=== PATIENT | male | born 1960 | race Caucasian/White ===

== ENCOUNTER 2017-12-29 14:33 | Emergency (ER) | payer OTHER ==
--- NOTE | 2017-12-29 15:44 | RADIOLOGY REPORT (SQ) ---
EXAM DESCRIPTION: KNEE LEFT 4 VIEW COMPLETED DATE/TIME: 12/29/2017 3:37 pm REASON FOR STUDY: left knee pain COMPARISON: None. NUMBER OF VIEWS: Four views. TECHNIQUE: AP, lateral, and both oblique radiographic images acquired of the left knee. LIMITATIONS: None. FINDINGS: MINERALIZATION: Normal. BONES: There is a total knee arthroplasty in good position. JOINT: No effusion. SOFT TISSUES: No soft tissue swelling. No radio-opaque foreign body. OTHER: No other significant finding. IMPRESSION: NEGATIVE STUDY OF THE LEFT KNEE. NO RADIOGRAPHIC EVIDENCE OF ACUTE INJURY. TECHNICAL DOCUMENTATION: JOB ID: [id number] [employer]- All Rights Reserved Reading location - IP/workstation name: [email or web address]
--- NOTE | 2017-12-29 15:58 | ER Document Report ---
ED Extremity Problem, Lower - General Chief Complaint: Knee Pain Stated Complaint: SWOLLEN KNEE Time Seen by Provider: 12/29/17 15:31 Mode of Arrival: Wheelchair Information source: Patient Notes: 57-year-old male presents to ED for complaint of left knee pain. He states that the left knee has been swollen for about a week with pain. He states he might have slept on it wrong. States she has been taken Tylenol at home for the pain. States he had a knee replacement in 2002. He states normally he can put weight on it but he has not been able to put weight on it for the last 3 days. TRAVEL OUTSIDE OF THE [place] IN LAST 30 DAYS: No - HPI Patient complains to provider of: Pain, Swelling. No: Injury Location: Knee Occurred: Other - 3 days Onset/Duration: Gradual, Persistent Quality of pain: Sharp, Throbbing Severity: Severe Pain Level: 5 Recent injury: No Associated symptoms: Painful ambulation Exacerbated by: Hanging down, Movement Relieved by: Nothing - Related Data Allergies/Adverse Reactions: No Known Allergies Allergy (Verified 10/08/15 16:48) Past Medical History - General Information source: Patient - Social History Smoking Status: Former Smoker Cigarette use (# per day): No Chew tobacco use (# tins/day): No Smoking Education Provided: No Frequency of alcohol use: Heavy Drug Abuse: None Occupation: disable Lives with: Spouse/Significant other Family History: Arthritis, CVA, Hypertension Patient has suicidal ideation: No Patient has homicidal ideation: No - Past Medical History Cardiac Medical History: Reports: Hx Atrial Fibrillation, Hx Hypertension Pulmonary Medical History: Reports: None EENT Medical History: Reports: None Neurological Medical History: Reports: None Endocrine Medical History: Reports: None Renal/ Medical History: Reports: None Malignancy Medical History: Reports None GI Medical History: Reports: None Musculoskeltal Medical History: Reports Hx Arthritis - gout, Reports Hx Gout, Reports Hx Musculoskeletal Deformity, Reports Hx Musculoskeletal Trauma Skin Medical History: Reports None Psychiatric Medical History: Reports: Hx Anxiety, Hx Bipolar Disorder, Other - Insomnia Traumatic Medical History: Reports: None Infectious Medical History: Reports: None Past Surgical History: Reports: Hx Orthopedic Surgery - left knee replacement right rotator cuff, Other - Skin cancer removed, lymph node removed - Immunizations Hx Diphtheria, Pertussis, Tetanus Vaccination: Yes Review of Systems - Review of Systems Constitutional: No symptoms reported EENT: No symptoms reported Cardiovascular: No symptoms reported Respiratory: No symptoms reported Gastrointestinal: No symptoms reported Genitourinary: No symptoms reported Male Genitourinary: No symptoms reported Musculoskeletal: Other - Pain to the back of the knee. He states he might have slept on it wrong. He does have a knee replacement on this knee. He states that his knee is swollen but actually the other knee is larger than this knee. He states she has been taken Tylenol at home. Skin: No symptoms reported Hematologic/Lymphatic: No symptoms reported Neurological/Psychological: No symptoms reported -: Yes All other systems reviewed and negative Physical Exam - Vital signs Vitals: Temp Pulse BP Pulse Ox 97.7 F 77 119/91 H 93 12/29/17 15:12 12/29/17 15:12 12/29/17 15:12 12/29/17 15:12 Interpretation: Normal - General General appearance: Appears well, Alert - HEENT Head: Normocephalic, Atraumatic Eyes: Normal Pupils: PERRL - Respiratory Respiratory status: No respiratory distress Chest status: Nontender Breath sounds: Normal Chest palpation: Normal - Cardiovascular Rhythm: Regular Heart sounds: Normal auscultation Murmur: No - Abdominal Inspection: Normal Distension: No distension Bowel sounds: Normal Tenderness: Nontender Organomegaly: No organomegaly - Back Back: Normal, Nontender - Extremities General upper extremity: Normal inspection, Nontender, Normal color, Normal ROM , Normal temperature General lower extremity: Normal temperature. No: Hollie's sign Knee: Tender, Pain with ROM, Patellar tendon intact, Popliteal fossa tender, Tender joint line, Other - Lower extremity discoloration chronic. No: Abrasion , Deformity, Dislocation, Drawer's test instability, Ecchymosis, Instability, Joint effusion, Laceration, Laxity with valgus stress, Laxity with varus stress - Neurological Neuro grossly intact: Yes Cognition: Normal Orientation: AAOx4 [place] Coma Scale Eye Opening: Spontaneous [place] Coma Scale Verbal: Oriented [place] Coma Scale Motor: Obeys Commands [place] Coma Scale Total: 15 Speech: Normal Motor strength normal: LUE, RUE, LLE, RLE Sensory: Normal - Psychological Associated symptoms: Normal affect, Normal mood - Skin Skin Temperature: Warm Skin Moisture: Dry Skin Color: Normal Course - Re-evaluation Re-evalutation: 12/29/17 21:26 Left knee x-ray and venous Doppler were both negative. Patient stated he could not get up out of the chair to get onto the bed when first examined. But after he was told that his x-rays and ultrasound were negative he was able to get himself up and into the chair. Patient was instructed to follow-up with the surgeon who did his knee replacement and his [facility] for his continued pain. - Vital Signs Vital signs: Temp Pulse Resp BP Pulse Ox 97.6 F 75 16 118/75 98 12/29/17 17:00 12/29/17 17:00 12/29/17 17:00 12/29/17 17:00 12/29/17 17:00 - Diagnostic Test Radiology reviewed: Image reviewed, Reports reviewed Discharge - Discharge Clinical Impression: Left knee pain Qualifiers: Chronicity: unspecified Qualified Code(s): M25.562 - Pain in left knee Condition: Stable Disposition: HOME, SELF-CARE Instructions: Knee Exercise Program (OM) Additional Instructions: He was seen today for pain to the left knee for the last several days. There is no acute changes to your x-ray Doppler is negative for any blood clots or Gomez's cyst. There may be a small effusion according to the Doppler on the lateral aspect of the knee. ICE & ELEVATION: Apply ice packs frequently against the painful area. Many different schedules are recommended, such as "20 minutes on, 20 minutes off" or "one hour ice, two hours rest." If you need to work, you may need to go longer between ice treatments. You should plan to have the area ice packed AT LEAST one- fourth of the time. The ice should be applied over the wrap, tape, or splint, or over a layer of cloth -- not directly against the skin. Some ice bags have a built-in cloth and can be put directly on the skin. Your injured part should be elevated as much as possible over the next 48 hours. Try to keep the injury above the level of the heart. Avoid use of the injured area. Elevation and rest will decrease the swelling. ORAL NARCOTIC MEDICATION: You have been given a prescription for pain control. This medication is a narcotic. It's best taken with food, as nausea can result if taken on an empty stomach. Don't operate machinery or drive within six hours of taking this medication. Do not combine this medicine with alcohol, or with any medication which can cause sedation (such as cold tablets or sleeping pills) unless you get permission from the physician. Narcotics tend to cause constipation. If possible, drink plenty of fluids and eat a diet high in fiber and fruits. Please be aware that prescription narcotics also have the potential for abuse. People become addicted to these medications because of the general sense of wellbeing that they induce. This feeling along with a significant reduction in tension, anxiety, and aggression provides a stimulating seductive quality to these drugs. Once your pain is under control, we encourage you to discard your unused narcotics. FOLLOW-UP CARE: Please call your orthopedic rn today and schedule a follow-up appointment for this knee pain. If you cannot call him today then calling tomorrow. If you have been referred to a physician for follow-up care, call the physician s office for an appointment as you were instructed or within the next two days. If you experience worsening or a significant change in your symptoms, notify the physician immediately or return to the Emergency Department at any time for re-evaluation. Prescriptions: Hydrocodone/Acetaminophen [[place] 5-325 mg Tablet] 1 tab PO Q6HP PRN #5 tablet PRN Reason: Forms: Elevated Blood Pressure
--- NOTE | 2017-12-29 16:58 | RADIOLOGY REPORT (SQ) ---
EXAM DESCRIPTION: VENOUS UNILATERAL LOWER COMPLETED DATE/TIME: 12/29/2017 4:50 pm REASON FOR STUDY: left leg pain sedentary COMPARISON: Left knee plain films 12/29/2017 TECHNIQUE: Dynamic and static centeno scale and color images acquired of the left leg venous system. Se lected spectral images acquired with additional compression and augmentation maneuvers. The contralat eral common femoral vein and saphenofemoral junction were also imaged. Images stored on PACS. LIMITATIONS: None. FINDINGS: LEFT COMMON FEMORAL: Normal phasicity, compression and augmentation. No visualized echogenic material on g ray scale. No defects on color images. FEMORAL: Normal compression and augmentation. No visualized echogenic material on centeno scale. No defe cts on color images. POPLITEAL: Normal compression, augmentation. No visualized echogenic material on centeno scale. No defec ts on color images. CALF VESSELS: Normal compression, augmentation. No visualized echogenic material on centeno scale. No de fects on color images. GSV and SSV: Normal compression, augmentation. No visualized echogenic material on centeno scale. No def ects on color images. ANY DEEP VENOUS INSUFFICIENCY: Not evaluated. ANY EVIDENCE OF POPLITEAL CYST: Gomez's cyst versus joint effusion in the popliteal fossa OTHER: No other significant finding. RIGHT COMMON FEMORAL VEIN AND SAPHENOFEMORAL JUNCTION: Normal phasicity, compression and augmentation. No visualized echogenic material on centeno scale. No de fects on color images. IMPRESSION: NO EVIDENCE OF DVT OR SVT IN THE LEFT LEG. TECHNICAL DOCUMENTATION: JOB ID: [id number] [employer]- All Rights Reserved Reading location - IP/workstation name: [email or web address]
[2017-12-29 17:17] VITALS: BP 118/75
== END 2017-12-29 17:00 | disposition home or self-care (01) ==
LOC: ER 14:33
DX: M25.562 Pain in left knee (principal); Z96.652 Presence of left artificial knee joint; I48.91 Unspecified atrial fibrillation; I10 Essential (primary) hypertension; Z85.828 Personal history of other malignant neoplasm of skin
CPT/HCPCS: 93971; 99284

== ENCOUNTER 2020-02-10 06:52 | Inpatient (IN) | payer OTHER ==
[2020-02-10] MEDS ORDERED: ONDANSETRON HCL INJ/PF 4 MG/2 ML SDV IV ONE (07:03)
[2020-02-10] MEDS ORDERED: NORMAL SALINE 1000 ML 1,000 ML IV ONE (07:03)
[2020-02-10] MEDS ORDERED: MAG HYDROX/AL HYDROX/SIMETH SUSP 30 ML UDCUP PO ONE (08:34)
[2020-02-10] MEDS ORDERED: LIDOCAINE 2% VISCOUS SOLN 15 ML UDCUP PO ONE (08:34)
[2020-02-10 08:58] LABS: ABSOLUTE EOSINOPHILS # (AUTO) 0.1 10^3/uL (0.0-0.6); ABSOLUTE LYMPHOCYTES (AUTO) 0.5 10^3/uL (0.5-4.7); ABSOLUTE MONOCYTES (AUTO) 0.9 10^3/uL (0.1-1.4); ABSOLUTE NEUT (AUTO) 7.7 10^3/uL (1.7-8.2); BASOPHILS % (AUTO) 0.2 % (0-2); EOSINOPHILS % (AUTO) 0.7 % (0-6); HEMATOCRIT 42.5 % (37.9-51.0); HEMOGLOBIN 14.9 g/dL (13.5-17.0); LYMPHOCYTES % (AUTO) 5.3 % (13-45); MEAN CORPUSCULAR HEMOGLOBIN 35.1 pg (27.0-33.4); MEAN CORPUSCULAR HGB CONC 35.1 g/dL (32.0-36.0); MEAN CORPUSCULAR VOLUME 100 fl (80-97); MONOCYTES % (AUTO) 9.9 % (3-13); PLATELET COUNT 183 10^3/uL (150-450); RED BLOOD COUNT 4.24 10^6/uL (4.35-5.55); SEGMENTED NEUTROPHILS % (AUTO) 83.9 % (42-78); TOTAL CELLS COUNTED % (AUTO) 100 %; WHITE BLOOD COUNT 9.2 10^3/uL (4.0-10.5)
--- NOTE | 2020-02-10 09:06 | ER Document Report ---
Entered by SUNI VALIENTE SCRIBE 02/10/20 0817 Acting as scribe for:SHU PARKINSON MD ED GI/ - General Chief Complaint: Nausea/Vomiting Stated Complaint: VOMITING Time Seen by Provider: 02/10/20 08:04 Primary Care Provider: CHOCO,LINDEN [Primary Care Provider] - Follow up as needed Mode of Arrival: Wheelchair Information source: Patient Notes: This alcoholic 59 year old male patient presents to the emergency department today with complaints of abdominal pain for the last x4 days. Patient describes the location as "all of it", stating it feels like "like needles or ice picks" across his entire abdomen. Patient states he thinks he has food poisoning. He denies any diarrhea. TRAVEL OUTSIDE OF THE [place] IN LAST 30 DAYS: No - Related Data Allergies/Adverse Reactions: No Known Allergies Allergy (Verified 01/30/19 08:36) Home Medications: P TUNABLE TO VERIFY Past Medical History - General Information source: Patient - Social History Smoking Status: Never Smoker Cigarette use (# per day): No Frequency of alcohol use: Heavy Drug Abuse: None Lives with: Family Family History: Reviewed & Not Pertinent, Arthritis, CVA, Hypertension Patient has homicidal ideation: No - Past Medical History Cardiac Medical History: Reports: Hx Atrial Fibrillation, Hx Hypertension Musculoskeletal Medical History: Reports Hx Arthritis - gout, Reports Hx Gout, Reports Hx Musculoskeletal Deformity, Reports Hx Musculoskeletal Trauma Psychiatric Medical History: Reports: Hx Anxiety, Hx Bipolar Disorder Past Surgical History: Reports: Hx Orthopedic Surgery - left knee replacement right rotator cuff, Other - Skin cancer removed, lymph node removed - Immunizations Hx Diphtheria, Pertussis, Tetanus Vaccination: Yes - NOT UP TO DATE Review of Systems - Review of Systems Constitutional: No symptoms reported EENT: No symptoms reported Cardiovascular: No symptoms reported Respiratory: No symptoms reported Gastrointestinal: See HPI, Abdominal pain. denies: Diarrhea Genitourinary: No symptoms reported Male Genitourinary: No symptoms reported Musculoskeletal: No symptoms reported Skin: No symptoms reported Hematologic/Lymphatic: No symptoms reported Neurological/Psychological: No symptoms reported -: Yes All other systems reviewed and negative Physical Exam - Vital signs Vitals: Temp 97.5 F 02/10/20 07:00 - General General appearance: Alert In distress: None - HEENT Head: Normocephalic, Atraumatic Eyes: Normal Conjunctiva: Normal - Respiratory Respiratory status: No respiratory distress Chest status: Nontender Breath sounds: Normal - Cardiovascular Rhythm: Irregularly irregular, Tachycardia Heart sounds: Normal auscultation Murmur: No - Abdominal Inspection: Obese - morbidly Distension: No distension Bowel sounds: Normal Tenderness: Other - very mild diffuse tenderness with palpation. Seems to be most tender in the epigastric region. - Extremities General upper extremity: Normal inspection, Nontender, Normal ROM General lower extremity: Nontender, Edema, Normal ROM - Neurological Neuro grossly intact: Yes Cognition: Normal Orientation: AAOx4 - Psychological Associated symptoms: Normal affect, Normal mood - Skin Skin Temperature: Warm Skin Moisture: Dry Skin Color: Normal Course - Vital Signs Vital signs: Temp Pulse Resp BP Pulse Ox 97.5 F 18 198/110 H 94 02/10/20 07:00 02/10/20 09:04 02/10/20 09:12 02/10/20 09:04 - Laboratory Result Diagrams: 02/10/20 08:36 02/10/20 08:36 Laboratory results interpreted by me: 02/10/20 02/10/20 02/10/20 05:22 08:36 08:36 RBC 4.24 L MCV 100 H MCH 35.1 H Lymph % (Auto) 5.3 L Seg Neutrophils % 83.9 H Sodium 131.9 L Chloride 88 L Carbon Dioxide 32 H Glucose 150 H POC Glucose Magnesium Total Bilirubin 1.5 H Direct Bilirubin 0.6 H Alkaline Phosphatase 214 H Creatine Kinase C-Reactive Protein 224.8 H Lipase 1579.6 H Urine Protein Urine Ketones Urine Urobilinogen Ur Leukocyte Esterase Urine Ascorbic Acid 02/10/20 02/10/20 02/10/20 08:36 08:55 10:27 RBC MCV MCH Lymph % (Auto) Seg Neutrophils % Sodium Chloride Carbon Dioxide Glucose POC Glucose 143 H Magnesium 1.1 L* Total Bilirubin Direct Bilirubin Alkaline Phosphatase Creatine Kinase 37 L C-Reactive Protein Lipase Urine Protein 100 H Urine Ketones 20 H Urine Urobilinogen 2.0 H Ur Leukocyte Esterase TRACE H Urine Ascorbic Acid 40 H - Diagnostic Test Radiology reviewed: Image reviewed, Reports reviewed - Gallbladder ultrasound shows fatty enlarged liver, otherwise no acute abnormality. - EKG Interpretation by Me EKG shows normal: [place], Intervals, QRS Complexes. abnormal: Sinus rhythm, ST-T Waves - Nonspecific repolarization abnormality in the lateral leads Rate: Tachycardia - 146 Rhythm: A.Fib When compared to previous EKG there are: No significant change - Consults SANTOS Claire Time consulted: 10:43 Consulted provider: will come to ER Critical Care Note - Critical Care Note Total time excluding time spent on procedures (mins): 40 Discharge - Discharge Clinical Impression: Chronic atrial fibrillation with RVR, Hypomagnesemia Nausea and vomiting Qualifiers: Vomiting type: unspecified Vomiting Intractability: non-intractable Qualified Code(s): R11.2 - Nausea with vomiting, unspecified Abdominal pain Qualifiers: Abdominal location: epigastric Qualified Code(s): R10.13 - Epigastric pain Pancreatitis, acute Qualifiers: Pancreatitis type: alcohol induced Acute pancreatitis complication: unspecified Qualified Code(s): K85.20 - Alcohol induced acute pancreatitis without necrosis or infection High blood pressure Qualifiers: Hypertension type: essential hypertension Qualified Code(s): I10 - Essential (primary) hypertension Condition: Stable Disposition: ADMITTED INPATIENT Admitting Provider: Fred (Hospitalist) Unit Admitted: [facility]: [facility] [[facility] - Follow up as needed I personally performed the services described in the documentation, reviewed and edited the documentation which was dictated to the scribe in my presence, and it accurately records my words and actions.
[2020-02-10] MEDS ORDERED: DILTIAZEM HCL INJ 25 MG/5 ML VIAL IV ONE (09:09)
[2020-02-10] MEDS ORDERED: FENTANYL CITRATE INJ/PF 100 MCG/2 ML AMPUL IV ONE ×2 (09:11→10:56)
[2020-02-10 09:12] LABS: ALBUMIN 3.9 g/dL (3.5-5.0); ALKALINE PHOSPHATASE 214 U/L (38-126); ANION GAP 12 (5-19); ASPARTATE AMINO TRANSFERASE 52 U/L (17-59); BILIRUBIN,DIRECT 0.6 mg/dL (0.0-0.4); BILIRUBIN,TOTAL 1.5 mg/dL (0.2-1.3); BLOOD UREA NITROGEN 13 mg/dL (7-20); CALCIUM 9.9 mg/dL (8.4-10.2); CARBON DIOXIDE 32 mmol/L (22-30); CHLORIDE 88 mmol/L (98-107); GLUCOSE 150 mg/dL (75-110); POTASSIUM 4.3 mmol/L (3.6-5.0); TOTAL PROTEIN 7.8 g/dL (6.3-8.2)
[2020-02-10 09:19] LABS: APPEARANCE,URINE CLEAR; BILIRUBIN,URINE NEGATIVE (NEGATIVE); COLOR,URINE YELLOW; GLUCOSE, URINE NEGATIVE (NEGATIVE); KETONES,URINE 20 mg/dL (NEGATIVE); LEUKOCYTE ESTERASE,URINE TRACE (NEGATIVE); NITRITE,URINE NEGATIVE (NEGATIVE); PROTEIN,URINE 100 mg/dL (NEGATIVE)
[2020-02-10] MEDS: DILTIAZEM HCL/D5W 125 MG/125 ML RTUINJ IV PRN ×2 (09:42→18:28)
[2020-02-10] MEDS: MAGNESIUM SULFATE/D5W 1 GM/100 ML RTUPB IV SCH ×2 (10:09→11:21)
--- NOTE | 2020-02-10 10:16 | EKG REPORT ---
SEVERITY:- ABNORMAL ECG - ATRIAL FIBRILLATION, V-RATE 103-190 NONSPECIFIC REPOL ABNORMALITY, LATERAL LEADS : Confirmed by: Bianca Lamb MD 10-Feb-2020 10:15:52
--- NOTE | 2020-02-10 10:21 | RADIOLOGY REPORT (SQ) ---
EXAM DESCRIPTION: U/S ABDOMEN LIMITED W/O DOP IMAGES COMPLETED DATE/TIME: 02/10/2020 10:00 am REASON FOR STUDY: Pancreatitis COMPARISON: None. TECHNIQUE: Dynamic and static grayscale images acquired of the abdomen and recorded on PACS. Additio nal selected color Doppler and spectral images recorded. LIMITATIONS: Acoustical interference from habitus and overlying bowel gas. FINDINGS: PANCREAS: Only partially visualized. Body and tail not seen. Head looks normal. LIVER: Liver looks diffusely echogenic and mildly enlarged at 20 cm. Likely fatty parenchyma. No gr oss mass. LIVER VASCULATURE: Normal directional flow of the main portal vein and hepatic veins. GALLBLADDER: No stones. Normal wall thickness. No pericholecystic fluid. ULTRASOUND-DETECTED GALEAS'S SIGN: Negative. INTRAHEPATIC DUCTS AND COMMON DUCT: CBD and intrahepatic ducts normal caliber. No filling defects. INFERIOR VENA CAVA: Normal flow. AORTA: No aneurysm. RIGHT KIDNEY: Normal size. Normal echogenicity. No solid or suspicious masses. No hydronephrosis. No calcifications. PERITONEAL AND RIGHT PLEURAL SPACE: No ascites or effusions. OTHER: No other significant findings. IMPRESSION: Limited study. Fatty enlarged liver. TECHNICAL DOCUMENTATION: JOB ID: [id number] 2010 [employer]- All Rights Reserved Reading location - IP/workstation name: [email or web address]
--- NOTE | 2020-02-10 10:35 | RADIOLOGY REPORT (SQ) ---
EXAM DESCRIPTION: CHEST SINGLE VIEW IMAGES COMPLETED DATE/TIME: 02/10/2020 10:26 am REASON FOR STUDY: A. fib with RVR, pancreatitis, nausea vomiting COMPARISON: 2018. NUMBER OF VIEWS: One view. TECHNIQUE: Single frontal radiographic view of the chest acquired. LIMITATIONS: None. FINDINGS: LUNGS AND PLEURA: No opacities, masses or pneumothorax. No pleural effusion. MEDIASTINUM AND HILAR STRUCTURES: No masses. Contour normal. HEART AND VASCULAR STRUCTURES: Heart normal in size. Normal vasculature. BONES: No acute findings. HARDWARE: None in the chest. OTHER: No other significant finding. IMPRESSION: NO SIGNIFICANT RADIOGRAPHIC FINDING IN THE CHEST. TECHNICAL DOCUMENTATION: JOB ID: [id number] 2010 [employer]- All Rights Reserved Reading location - IP/workstation name: [email or web address]
[2020-02-10] MEDS ORDERED: DIGOXIN INJ 0.5 MG/2 ML AMPULE IV ONE (10:56)
[2020-02-10] MEDS ORDERED: DEXTROSE 50%-WATER 25 GM/50 ML DISP.SYRIN IV PRN ×4 (12:05→15:43)
[2020-02-10] MEDS ORDERED: ACETAMINOPHEN 325 MG TABLET PO PRN (12:05)
[2020-02-10] MEDS ORDERED: DEXTROSE 40% GEL 15 GM TUBE PO PRN ×4 (12:05→15:43)
[2020-02-10] MEDS ORDERED: GLUCAGON,HUMAN RECOMB 1 MG INJ SUBCUT PRN (12:05)
[2020-02-10] MEDS ORDERED: MAG HYDROX/AL HYDROX/SIMETH SUSP 30 ML UDCUP PO PRN (12:05)
[2020-02-10] MEDS ORDERED: ONDANSETRON 4 MG TAB.RAPDIS PO PRN (12:05)
[2020-02-10] MEDS ORDERED: LEVALBUTEROL HCL NEB 1.25 MG/3 ML AMPUL NEB PRN (12:05)
[2020-02-10 12:12] LABS: URINE AMPHETAMINES SCREEN NEGATIVE; URINE BARBITURATES SCREEN NEGATIVE; URINE BENZODIAZEPINES SCREEN NEGATIVE; URINE COCAINE SCREEN NEGATIVE; URINE METHADONE SCREEN NEGATIVE; URINE PHENCYCLIDINE SCREEN NEGATIVE
[2020-02-10 12:25] LABS: URINE MARIJUANA (THC) SCREEN UNCONFIRMED POSITIVE
[2020-02-10 12:38] LABS: INTERNATIONAL RATION (INR) 1.29; PROTHROMBIN TIME 16.2 SEC (11.4-15.4)
[2020-02-10] MEDS: NORMAL SALINE 1000 ML 1,000 ML IV PRN ×2 (13:16→21:19)
[2020-02-10] MEDS: PANTOPRAZOLE SODIUM 40 MG VIAL IV SCH ×2 (13:16→21:19)
[2020-02-10] MEDS: METOPROLOL SUCCINATE 50 MG TAB.SR.24H PO SCH ×2 (13:16→21:18)
[2020-02-10 13:24] LABS: CREATINE KINASE MB 2.23 ng/mL (<4.55); TROPONIN I 0.049 ng/mL
[2020-02-10] MEDS: DIGOXIN 0.25 MG TABLET PO SCH (14:06)
[2020-02-10] MEDS ORDERED: GLUCAGON,HUMAN RECOMB 1 MG INJ IM PRN (15:43)
[2020-02-10] MEDS ORDERED: HYDRALAZINE HCL INJ/PF 20 MG/1 ML SDV IV PRN (16:04)
[2020-02-10] MEDS: METFORMIN HCL 500 MG TABLET PO SCH (16:50)
[2020-02-10] MEDS: MORPHINE SULFATE 10 MG/ML INJ IV PRN ×2 (16:51→21:18)
[2020-02-10] MEDS: LORAZEPAM 1 MG TABLET PO SCH (17:06)
[2020-02-10] MEDS: APIXABAN 5 MG TABLET PO SCH (17:07)
[2020-02-10] MEDS ORDERED: APIXABAN 5 MG TABLET PO SCH (18:00)
[2020-02-10] MEDS: INSULIN LISPRO 100 UNIT/ML 3 ML VIAL SUBCUT SCH ×2 (18:10→23:02)
[2020-02-10] MEDS: ONDANSETRON HCL INJ/PF 4 MG/2 ML SDV IV PRN (18:28)
[2020-02-10] MEDS: QUETIAPINE FUMARATE 100 MG TABLET PO SCH (21:19)
[2020-02-11] MEDS: LORAZEPAM 1 MG TABLET PO SCH ×5 (01:38→17:57)
[2020-02-11] MEDS: MORPHINE SULFATE 10 MG/ML INJ IV PRN ×2 (04:08→21:03)
[2020-02-11] MEDS: DILTIAZEM HCL/D5W 125 MG/125 ML RTUINJ IV PRN ×2 (05:44→05:47)
[2020-02-11] MEDS: NORMAL SALINE 1000 ML 1,000 ML IV PRN ×2 (05:45→09:12)
[2020-02-11 05:59] LABS: ABSOLUTE EOSINOPHILS # (AUTO) 0.1 10^3/uL (0.0-0.6); ABSOLUTE LYMPHOCYTES (AUTO) 0.5 10^3/uL (0.5-4.7); ABSOLUTE MONOCYTES (AUTO) 0.9 10^3/uL (0.1-1.4); ABSOLUTE NEUT (AUTO) 7.3 10^3/uL (1.7-8.2); BASOPHILS % (AUTO) 0.3 % (0-2); EOSINOPHILS % (AUTO) 0.6 % (0-6); HEMATOCRIT 41.3 % (37.9-51.0); HEMOGLOBIN 14.5 g/dL (13.5-17.0); LYMPHOCYTES % (AUTO) 5.8 % (13-45); MEAN CORPUSCULAR HEMOGLOBIN 34.8 pg (27.0-33.4); MEAN CORPUSCULAR HGB CONC 35.2 g/dL (32.0-36.0); MEAN CORPUSCULAR VOLUME 99 fl (80-97); MONOCYTES % (AUTO) 10.2 % (3-13); PLATELET COUNT 162 10^3/uL (150-450); RED BLOOD COUNT 4.18 10^6/uL (4.35-5.55); SEGMENTED NEUTROPHILS % (AUTO) 83.1 % (42-78); TOTAL CELLS COUNTED % (AUTO) 100 %; WHITE BLOOD COUNT 8.7 10^3/uL (4.0-10.5)
[2020-02-11 06:23] LABS: ALBUMIN 3.7 g/dL (3.5-5.0); ALKALINE PHOSPHATASE 161 U/L (38-126); AMYLASE 57 U/L (30-110); ANION GAP 12 (5-19); ASPARTATE AMINO TRANSFERASE 36 U/L (17-59); BILIRUBIN,DIRECT 0.8 mg/dL (0.0-0.4); BILIRUBIN,TOTAL 1.6 mg/dL (0.2-1.3); BLOOD UREA NITROGEN 12 mg/dL (7-20); CALCIUM 8.9 mg/dL (8.4-10.2); CARBON DIOXIDE 25 mmol/L (22-30); CHLORIDE 93 mmol/L (98-107); GLUCOSE 121 mg/dL (75-110); POTASSIUM 4.8 mmol/L (3.6-5.0); TOTAL PROTEIN 7.4 g/dL (6.3-8.2)
--- NOTE | 2020-02-11 07:17 | EKG REPORT ---
SEVERITY:- ABNORMAL ECG - ATRIAL FIBRILLATION, V-RATE 66-106 NONSPECIFIC T ABNORMALITIES, LATERAL LEADS : Confirmed by: Joel Seymour MD 11-Feb-2020 07:17:02
[2020-02-11] MEDS: INSULIN LISPRO 100 UNIT/ML 3 ML VIAL SUBCUT SCH ×4 (08:31→22:30)
--- NOTE | 2020-02-11 08:36 | PDOC H&P ---
History of Present Illness Admission Date/PCP: 02/10/20 10:42 [facility] History of Present Illness: ALAN CANO is a 59 year old male admitted through the emergency room on 02/10/2024 acute pancreatitis secondary to alcohol abuse. Patient tells me he drinks about a pint of vodka on a regular basis, I am unsure if it is every day or every other day. Patient tells me has been drinking alcohol for many many years , he tells me he has been vomiting 3-4 times every day for the last 4 d ays. Patient is also been having some vague abdominal pain for the last for 5 days. Patient states he is never had pancreatitis before. Patient denies fever chills or chest pain. The emergency room and on the floor patient has refused CT scan of his abdomen and pelvis. Informed patient we will admit him to the hospital for IV pain medication IV fluids and n.p.o.. Patient was quite upset that he will not be able to eat any food. Admission lipase 1579 Past Medical History Cardiac Medical History: Reports: Atrial Fibrillation, Hypertension Denies: Coronary Artery Disease, Myocardial Infarction Pulmonary Medical History: Denies: Asthma, Bronchitis, Chronic Obstructive Pulmonary Disease (COPD), Pneumonia Neurological Medical History: Denies: Seizures Musculoskeltal Medical History: Reports: Arthritis - gout, Gout Psychiatric Medical History: Reports: Bipolar Disorder, Depression Hematology: Denies: Anemia Past Surgical History Past Surgical History: Reports: Orthopedic Surgery - left knee replacement right rotator cuff, Other - Skin cancer removed, lymph node removed Social History Lives with: Family Smoking Status: Never Smoker Electronic Cigarette use?: No Frequency of Alcohol Use: Heavy Hx Recreational Drug Use: No Drugs: None Hx Prescription Drug Abuse: No - Advance Directive Resuscitation Status: Full Code Family History Family History: Reviewed & Not Pertinent, Arthritis, CVA, Hypertension Parental Family History Reviewed: No Children Family History Reviewed: No Sibling(s) Family History Reviewed.: No Medication/Allergy Home Medications: Apixaban [Eliquis 5 mg Tablet] 5 mg PO BID 01/30/19 Digoxin [Lanoxin 0.25 mg Tablet] 0.25 mg PO DAILY 01/30/19 Lisinopril [Prinivil] 10 mg PO DAILY 01/30/19 Metoprolol Succinate 200 mg PO QAM 01/30/19 Colchicine [Mitigare] 0.6 mg PO ASDIR PRN MDD 3 CAPS 05/03/20 Hydrocodone/Acetaminophen [[place] 5-325 mg Tablet] 1 tab PO Q6HP PRN MDD FILLED 02/04 FOR 3 DAY SUPPLY 02/10/20 Levothyroxine Sodium [Synthroid 50 Mcg Tablet] 50 mcg PO DAILY 02/10/20 Metformin HCl [Glucophage 500 mg Tablet] 500 mg PO BIDACBS 02/10/20 Sulfamethoxazole/Trimethoprim [Septra-Ds 800-160 mg Tablet] 1 tab PO Q12 MDD FILLED 02/04 FOR 7 DAYS 02/10/20 Allergies/Adverse Reactions: No Known Allergies Allergy (Verified 01/30/19 08:36) Review of Systems Constitutional: ABSENT: chills, fever(s), headache(s), weight gain, weight loss Cardiovascular: ABSENT: chest pain, dyspnea on exertion, edema, orthropnea, palpitations Respiratory: ABSENT: cough, hemoptysis Gastrointestinal: PRESENT: abdominal pain, nausea, vomiting Neurological: ABSENT: abnormal gait, abnormal speech, confusion, dizziness, focal weakness, syncope Psychiatric: ABSENT: anxiety, depression, homidical ideation, suicidal ideation Physical Exam Vital Signs: Temp Pulse Resp BP Pulse Ox 97.4 F 78 18 130/80 H 99 02/11/20 07:53 02/11/20 08:00 02/11/20 07:53 02/11/20 08:00 02/11/20 07:53 Intake & Output 02/10/20 02/11/20 02/12/20 06:59 06:59 06:59 Intake Total 3438 Balance 3438 Weight 165.108 kg General appearance: PRESENT: mild distress Respiratory exam: PRESENT: clear to auscultation yolanda. ABSENT: rales, rhonchi, wheezes Cardiovascular exam: PRESENT: RRR. ABSENT: diastolic murmur, rubs, systolic murmur GI/Abdominal exam: PRESENT: distended, soft, tenderness - Generalized tenderness Neurological exam: PRESENT: alert, awake, oriented to person, oriented to place, oriented to time, oriented to situation, CN II-XII grossly intact. ABSENT: motor sensory deficit Psychiatric exam: PRESENT: appropriate affect, normal mood. ABSENT: homicidal ideation, suicidal ideation Results Laboratory Results: 02/11/20 05:25 02/11/20 05:25 02/10/20 02/10/20 02/10/20 05:22 08:36 08:36 WBC 9.2 RBC 4.24 L Hgb 14.9 Hct 42.5 MCV 100 H MCH 35.1 H MCHC 35.1 RDW 14.0 Plt Count 183 Seg Neutrophils % 83.9 H Sodium 131.9 L Potassium 4.3 Chloride 88 L Carbon Dioxide 32 H Anion Gap 12 BUN 13 Creatinine 0.73 Est GFR ( Amer) > 60 Glucose 150 H Calcium 9.9 Magnesium Total Bilirubin 1.5 H AST 52 Alkaline Phosphatase 214 H Ammonia C-Reactive Protein 224.8 H Total Protein 7.8 Albumin 3.9 Amylase Lipase 1579.6 H TSH Urine Color Urine Appearance Urine pH Ur Specific [place] Urine Protein Urine Glucose (UA) Urine Ketones Urine Blood Urine Nitrite Ur Leukocyte Esterase Urine WBC (Auto) Urine RBC (Auto) 02/10/20 02/10/20 02/10/20 08:36 08:36 08:55 WBC RBC Hgb Hct MCV MCH MCHC RDW Plt Count Seg Neutrophils % Sodium Potassium Chloride Carbon Dioxide Anion Gap BUN Creatinine Est GFR ( Amer) Glucose Calcium Magnesium 1.1 L* Total Bilirubin AST Alkaline Phosphatase Ammonia C-Reactive Protein Total Protein Albumin Amylase Lipase TSH 1.43 Urine Color YELLOW Urine Appearance CLEAR Urine pH 6.[address] 1.020 Urine Protein 100 H Urine Glucose (UA) NEGATIVE Urine Ketones 20 H Urine Blood NEGATIVE Urine Nitrite NEGATIVE Ur Leukocyte Esterase TRACE H Urine WBC (Auto) 7 Urine RBC (Auto) 4 02/10/20 02/11/20 02/11/20 12:40 05:25 05:25 WBC 8.7 RBC 4.18 L Hgb 14.5 Hct 41.3 MCV 99 H MCH 34.8 H MCHC 35.2 RDW 14.0 Plt Count 162 Seg Neutrophils % 83.1 H Sodium 130.3 L Potassium 4.8 Chloride 93 L Carbon Dioxide 25 Anion Gap 12 BUN 12 Creatinine 0.69 Est GFR ( Amer) > 60 Glucose 121 H Calcium 8.9 Magnesium 1.6 Total Bilirubin 1.6 H AST 36 Alkaline Phosphatase 161 H Ammonia < 8.7 L C-Reactive Protein Total Protein 7.4 Albumin 3.7 Amylase 57 Lipase 895.4 H TSH Urine Color Urine Appearance Urine pH Ur Specific [address] Urine Protein Urine Glucose (UA) Urine Ketones Urine Blood Urine Nitrite Ur Leukocyte Esterase Urine WBC (Auto) Urine RBC (Auto) 02/10/20 02/10/20 02/10/20 08:36 08:36 08:36 Creatine Kinase 37 L CK-MB (CK-2) Troponin I 0.045 NT-Pro-B Natriuret Pep 3830 H 02/10/20 12:40 Creatine Kinase CK-MB (CK-2) 2.23 Troponin I 0.049 NT-Pro-B Natriuret Pep Impressions: Abdomen Ultrasound 02/10/20 09:16 IMPRESSION: Limited study. Fatty enlarged liver. Chest X-Ray 02/10/20 10:11 IMPRESSION: NO SIGNIFICANT RADIOGRAPHIC FINDING IN THE CHEST. Assessment and Plan - Diagnosis (1) Alcohol abuse Is this a current diagnosis for this admission?: Yes (2) Abdominal pain Qualifiers: Abdominal location: epigastric Qualified Code(s): R10.13 - Epigastric pain Is this a current diagnosis for this admission?: Yes (3) Chronic atrial fibrillation with RVR Is this a current diagnosis for this admission?: Yes (4) High blood pressure Qualifiers: Hypertension type: essential hypertension Qualified Code(s): I10 - Essential (primary) hypertension Is this a current diagnosis for this admission?: Yes (5) Hypomagnesemia Is this a current diagnosis for this admission?: Yes (6) Nausea and vomiting Qualifiers: Vomiting type: unspecified Vomiting Intractability: non-intractable Qualified Code(s): R11.2 - Nausea with vomiting, unspecified Is this a current diagnosis for this admission?: Yes (7) Pancreatitis, acute Qualifiers: Pancreatitis type: alcohol induced Acute pancreatitis complication: unspecified Qualified Code(s): K85.20 - Alcohol induced acute pancreatitis without necrosis or infection Is this a current diagnosis for this admission?: Yes - Plan Summary Summary: Patient will be admitted to the hospital kept n.p.o., IV fluids, IV pain medications,. Follow with serial labs - Time Time Spent with patient: 35 or more minutes
[2020-02-11] MEDS: PANTOPRAZOLE SODIUM 40 MG VIAL IV SCH ×2 (09:10→21:04)
[2020-02-11] MEDS: DIGOXIN 0.25 MG TABLET PO SCH (09:10)
[2020-02-11] MEDS: APIXABAN 5 MG TABLET PO SCH ×2 (09:10→17:57)
[2020-02-11] MEDS: METOPROLOL SUCCINATE 50 MG TAB.SR.24H PO SCH ×2 (09:11→21:04)
[2020-02-11] MEDS: METFORMIN HCL 500 MG TABLET PO SCH ×2 (09:11→17:57)
[2020-02-11] MEDS ORDERED: DOCUSATE SODIUM 100 MG CAPSULE PO SCH (10:00)
[2020-02-11] MEDS ORDERED: ENOXAPARIN SODIUM INJ 40 MG/0.4 ML DISP.SYRIN SUBCUT SCH (10:00)
[2020-02-11] MEDS ORDERED: LEVOTHYROXINE SODIUM 0.05 MG TABLET PO SCH (10:00)
[2020-02-11] MEDS ORDERED: FUROSEMIDE 40 MG TABLET PO SCH (10:00)
[2020-02-11] MEDS ORDERED: DIGOXIN 0.25 MG TABLET PO SCH (10:00)
[2020-02-11] MEDS ORDERED: LISINOPRIL 5 MG TABLET PO SCH (10:00)
--- NOTE | 2020-02-11 10:47 | PDOC PROGRESS REPORT ---
Subjective Progress Note for:: 02/11/20 Reason For Visit: ABDOMINAL PAIN,ALCOHOL ABUSE,PANCREATITIS, 02/11/2020 She was admitted for alcoholic induced pancreatitis, reportedly has first case, with persistent vomiting Physical Exam Vital Signs: Temp Pulse Resp BP Pulse Ox 97.4 F 87 18 132/80 H 99 02/11/20 07:53 02/11/20 09:00 02/11/20 07:53 02/11/20 09:00 02/11/20 07:53 Intake & Output 02/10/20 02/11/20 02/12/20 06:59 06:59 06:59 Intake Total 3438 23 Balance 3438 23 Weight 165.108 kg General appearance: PRESENT: no acute distress Respiratory exam: PRESENT: clear to auscultation yolanda. ABSENT: rales, rhonchi, wheezes Cardiovascular exam: PRESENT: RRR. ABSENT: diastolic murmur, rubs, systolic murmur GI/Abdominal exam: PRESENT: distended Neurological exam: PRESENT: alert, awake, oriented to person, oriented to place, oriented to time, oriented to situation, CN II-XII grossly intact. ABSENT: motor sensory deficit Psychiatric exam: PRESENT: appropriate affect, normal mood. ABSENT: homicidal ideation, suicidal ideation Results Laboratory Results: 02/11/20 05:25 02/11/20 05:25 02/10/20 02/10/20 02/11/20 08:36 12:40 05:25 WBC 8.7 RBC 4.18 L Hgb 14.5 Hct 41.3 MCV 99 H MCH 34.8 H MCHC 35.2 RDW 14.0 Plt Count 162 Seg Neutrophils % 83.1 H Sodium Potassium Chloride Carbon Dioxide Anion Gap BUN Creatinine Est GFR ( Amer) Glucose Calcium Magnesium Total Bilirubin AST Alkaline Phosphatase Ammonia < 8.7 L Total Protein Albumin Amylase Lipase TSH 1.43 02/11/20 05:25 WBC RBC Hgb Hct MCV MCH MCHC RDW Plt Count Seg Neutrophils % Sodium 130.3 L Potassium 4.8 Chloride 93 L Carbon Dioxide 25 Anion Gap 12 BUN 12 Creatinine 0.69 Est GFR ( Amer) > 60 Glucose 121 H Calcium 8.9 Magnesium 1.6 Total Bilirubin 1.6 H AST 36 Alkaline Phosphatase 161 H Ammonia Total Protein 7.4 Albumin 3.7 Amylase 57 Lipase 895.4 H TSH 02/10/20 02/10/2020 08:36 08:36 08:36 Creatine Kinase 37 L CK-MB (CK-2) Troponin I 0.045 NT-Pro-B Natriuret Pep 3830 H 02/10/20 12:40 Creatine Kinase CK-MB (CK-2) 2.23 Troponin I 0.049 NT-Pro-B Natriuret Pep Impressions: Abdomen Ultrasound 02/10/20 09:16 IMPRESSION: Limited study. Fatty enlarged liver. Chest X-Ray 02/10/20 10:11 IMPRESSION: NO SIGNIFICANT RADIOGRAPHIC FINDING IN THE CHEST. Assessment and Plan - Diagnosis (1) Alcohol abuse Is this a current diagnosis for this admission?: Yes (2) Abdominal pain Qualifiers: Abdominal location: epigastric Qualified Code(s): R10.13 - Epigastric pain Is this a current diagnosis for this admission?: Yes (3) Chronic atrial fibrillation with RVR Is this a current diagnosis for this admission?: Yes (4) High blood pressure Qualifiers: Hypertension type: essential hypertension Qualified Code(s): I10 - Essential (primary) hypertension Is this a current diagnosis for this admission?: Yes (5) Hypomagnesemia Is this a current diagnosis for this admission?: Yes (6) Nausea and vomiting Qualifiers: Vomiting type: unspecified Vomiting Intractability: non-intractable Qualified Code(s): R11.2 - Nausea with vomiting, unspecified Is this a current diagnosis for this admission?: Yes (7) Pancreatitis, acute Qualifiers: Pancreatitis type: alcohol induced Acute pancreatitis complication: unspecified Qualified Code(s): K85.20 - Alcohol induced acute pancreatitis without necrosis or infection Is this a current diagnosis for this admission?: Yes - Plan Summary Summary: Patient will be admitted to the hospital kept n.p.o., IV fluids, IV pain medications,. Follow with serial labs 02/11/2020 Patient's main complaint is of being hungry. He has had no vomiting Temperature 98.2 pulse 80 blood pressure 122/70 O2 sat between 90 and 97% on 2 L White count is gone down slightly today 8.7 , sodium is 130 Alkaline phosphatase is down from 214-161 lipase is down from 1579-895 Rate of his atrial fib is better controlled today at 66 when he was admitted it was around 103 I am starting clear liquids and advancing his diet as tolerated. I explained to patient that this may be too early and he may start to become nauseated and vomit or have abdominal pain. If this occurs then naturally we will have to make him n.p.o. again resume his IV fluids. Have stopped his Cardizem drip as he is on a p.o. beta-regis and his rates appear to be well controlled Patient does well may discharge to home tomorrow on his current medications His atrial fib is paroxysmal and chronic in nature his pancreatitis is the first episode Patient appears medically stable. If he stays longer than Tuesday he may need to be treated prophylactically for DTs I discussed this with patient's nurse - Time Time Spent with patient: 25-34 minutes
[2020-02-11] MEDS: ONDANSETRON HCL INJ/PF 4 MG/2 ML SDV IV PRN (21:04)
[2020-02-11] MEDS: QUETIAPINE FUMARATE 100 MG TABLET PO SCH (21:06)
[2020-02-12] MEDS: LORAZEPAM 1 MG TABLET PO SCH ×2 (06:56)
[2020-02-12] MEDS: INSULIN LISPRO 100 UNIT/ML 3 ML VIAL SUBCUT SCH (08:05)
[2020-02-12] MEDS: METFORMIN HCL 500 MG TABLET PO SCH (08:08)
[2020-02-12 10:01] VITALS: BP 163/91
--- NOTE | 2020-02-12 11:20 | PDOC DISCHARGE SUMMARY ---
Impression - Admit/DC Date/PCP Admission Date/Primary Care Provider: 02/10/20 10:42 [facility] 59 year old male admitted through the emergency room on 02/10/2024 acute pancreatitis secondary to alcohol abuse. Patient tells me he drinks about a pint of vodka on a regular basis, I am unsure if it is every day or every other day. Patient tells me has been drinking alcohol for many many years , he tells me he has been vomiting 3-4 times every day for the last 4 days. Patient is also been having some vague abdominal pain for the last for 5 days. Patient states he is never had pancreatitis before. Patient denies fever chills or chest pain. The emergency room and on the floor patient has refused CT scan of his abdomen and pelvis. Informed patient we will admit him to the hospital for IV pain medication IV fluids and n.p.o.. Patient was quite upset that he will not be able to eat any food. Admission lipase 1579 Discharge Date: 02/12/20 - Assessment Summary: Patient will be admitted to the hospital kept n.p.o., IV fluids, IV pain medications,. Follow with serial labs 02/11/2020 Patient's main complaint is of being hungry. He has had no vomiting Temperature 98.2 pulse 80 blood pressure 122/70 O2 sat between 90 and 97% on 2 L White count is gone down slightly today 8.7 , sodium is 130 Alkaline phosphatase is down from 214-161 lipase is down from 1579-895 Rate of his atrial fib is better controlled today at 66 when he was admitted it was around 103 I am starting clear liquids and advancing his diet as tolerated. I explained to patient that this may be too early and he may start to become nauseated and vomit or have abdominal pain. If this occurs then naturally we will have to make him n.p.o. again resume his IV fluids. Have stopped his Cardizem drip as he is on a p.o. beta-regis and his rates appear to be well controlled Patient does well may discharge to home tomorrow on his current medications His atrial fib is paroxysmal and chronic in nature his pancreatitis is the first episode Patient appears medically stable. If he stays longer than Tuesday he may need to be treated prophylactically for DTs I discussed this with patient's nurse 5/5/20- lipase level is 895 , pt is able to tolerate diet, no c/o abd pain,nausea and vomitings, advised to stay overnight but he prefers to go home. if the symptoms like n/v and abd pain recurs he was advised to come to ER [facility] - Additional Information Resuscitation Status: Full Code Discharge Diet: Diabetic Discharge Activity: Activity As Tolerated [facility] [[facility] - Follow up as needed Home Medications: Lisinopril [Prinivil] 10 mg PO DAILY 01/30/19 Metoprolol Succinate 200 mg PO QAM 01/30/19 Colchicine [Mitigare] 0.6 mg PO ASDIR PRN MDD 3 CAPS 02/10/20 Levothyroxine Sodium [Synthroid 0.05 mg Tablet] 50 mcg PO DAILY 02/10/20 Metformin HCl [Glucophage 500 mg Tablet] 500 mg PO BIDACBS 02/10/20 Apixaban [Eliquis 5 mg Tablet] 5 mg PO BID tablet 02/12/20 Digoxin [Lanoxin 0.25 mg Tablet] 0.25 mg PO DAILY tablet 02/12/20 Furosemide [Lasix 40 mg Tablet] 40 mg PO DAILY tablet 02/12/20 Lisinopril [Prinivil 5 mg Tablet] 2.5 mg PO DAILY tablet 02/12/20 Metoprolol Succinate [Toprol Xl 50 mg Tab.sr] 50 mg PO Q12 tab.sr.24h 02/12/20 Quetiapine Fumarate [Seroquel 100 mg Tablet] 300 mg PO QHS tablet 02/12/20 History of Present Illiness History of Present Illness: ALAN CANO is a 59 year old male Hospital Course Hospital Course: 59 year old male admitted through the emergency room on 02/10/2024 acute pancreatitis secondary to alcohol abuse. Patient tells me he drinks about a pint of vodka on a regular basis, I am unsure if it is every day or every other day. Patient tells me has been drinking alcohol for many many years , he tells me he has been vomiting 3-4 times every day for the last 4 days. Patient is also been having some vague abdominal pain for the last for 5 days. Patient states he is never had pancreatitis before. Patient denies fever chills or chest pain. The emergency room and on the floor patient has refused CT scan of his abdomen and pelvis. Informed patient we will admit him to the hospital for IV pain medication IV fluids and n.p.o.. Patient was quite upset that he will not be able to eat any food. Admission lipase 1579 02/11/20-02/11/2020 She was admitted for alcoholic induced pancreatitis, reportedly has first case, with persistent vomiting Physical Exam Vital Signs: Temp Pulse Resp BP Pulse Ox 98.9 F 95 20 163/91 H 91 L 02/12/20 10:01 02/12/20 10:01 02/12/20 10:01 02/12/20 10:01 02/12/20 10:01 Intake & Output 02/11/20 02/12/20 02/13/20 06:59 06:59 06:59 Intake Total 3438 703 Output Total 0175 Balance 3438 -1372 Weight 165.108 kg General appearance: PRESENT: no acute distress, obese Head exam: PRESENT: atraumatic Eye exam: PRESENT: PERRLA Ear exam: PRESENT: normal external ear exam Mouth exam: PRESENT: neck supple Teeth exam: PRESENT: poor dentation Neck exam: ABSENT: carotid bruit, JVD, lymphadenopathy, thyromegaly Respiratory exam: PRESENT: decreased breath sounds Cardiovascular exam: PRESENT: RRR. ABSENT: diastolic murmur, rubs, systolic murmur GI/Abdominal exam: PRESENT: normal bowel sounds, soft. ABSENT: distended, guarding, mass, organolmegaly, rebound, tenderness Rectal exam: PRESENT: deferred Extremities exam: PRESENT: full ROM. ABSENT: calf tenderness, clubbing, pedal edema Neurological exam: PRESENT: alert, awake, oriented to person, oriented to place, oriented to time, oriented to situation, CN II-XII grossly intact. ABSENT: motor sensory deficit Psychiatric exam: PRESENT: appropriate affect, normal mood. ABSENT: homicidal ideation, suicidal ideation Results Laboratory Results: WBC 8.7 10^3/uL (4.0-10.5) 02/11/20 05:25 RBC 4.18 10^6/uL (4.35-5.55) L 02/11/20 05:25 Hgb 14.5 g/dL (13.5-17.0) 02/11/20 05:25 Hct 41.3 % (37.9-51.0) 02/11/20 05:25 MCV 99 fl (80-97) H 02/11/20 05:25 MCH 34.8 pg (27.0-33.4) H 02/11/20 05:25 MCHC 35.2 g/dL (32.0-36.0) 02/11/20 05:25 RDW 14.0 % (11.5-14.0) 02/11/20 05:25 Plt Count 162 10^3/uL (150-450) 02/11/20 05:25 Lymph % (Auto) 5.8 % (13-45) L 02/11/20 05:25 [place] % (Auto) 10.2 % (3-13) 02/11/20 05:25 Eos % (Auto) 0.6 % (0-6) 02/11/20 05:25 Baso % (Auto) 0.3 % (0-2) 02/11/20 05:25 Absolute Neuts (auto) 7.3 10^3/uL (1.7-8.2) 02/11/20 05:25 Absolute Lymphs (auto) 0.5 10^3/uL (0.5-4.7) 02/11/20 05:25 Absolute Monos (auto) 0.9 10^3/uL (0.1-1.4) 02/11/20 05:25 Absolute Eos (auto) 0.1 10^3/uL (0.0-0.6) 02/11/20 05:25 Absolute Basos (auto) 0.0 10^3/uL (0.0-0.2) 02/11/20 05:25 Seg Neutrophils % 83.1 % (42-78) H 02/11/20 05:25 PT 16.2 SEC (11.4-15.4) H 02/10/20 08:36 INR 1.29 02/10/20 08:36 APTT 39.1 SEC (23.5-35.8) H 02/11/20 05:25 Sodium 130.3 mmol/L (137-145) L 02/11/20 05:25 Potassium 4.8 mmol/L (3.6-5.0) 02/11/20 05:25 Chloride 93 mmol/L (98-107) L 02/11/20 05:25 Carbon Dioxide 25 mmol/L (22-30) 02/11/20 05:25 Anion Gap 12 (5-19) 02/11/20 05:25 BUN 12 mg/dL (7-20) 02/11/20 05:25 Creatinine 0.69 mg/dL (0.52-1.25) 02/11/20 05:25 Est GFR ( Amer) > 60 (>60) 02/11/20 05:25 Est GFR (MDRD) Non-Af > 60 (>60) 02/11/20 05:25 Glucose 121 mg/dL (75-110) H 02/11/20 05:25 POC Glucose 119 mg/dL (70-110) H 02/12/20 07:48 Calcium 8.9 mg/dL (8.4-10.2) 02/11/20 05:25 Magnesium 1.6 mg/dL (1.6-2.3) 02/11/20 05:25 Total Bilirubin 1.6 mg/dL (0.2-1.3) H 02/11/20 05:25 Direct Bilirubin 0.8 mg/dL (0.0-0.4) H 02/11/20 05:25 Neonat Total Bilirubin Not Reportable 02/11/20 05:25 Neonat Direct Bilirubin Not Reportable 02/11/20 05:25 Neonat Indirect Bili Not Reportable 02/11/20 05:25 AST 36 U/L (17-59) 02/11/20 05:25 ALT 34 U/L (<50) 02/11/20 05:25 Alkaline Phosphatase 161 U/L (38-126) H 02/11/20 05:25 Ammonia < 8.7 umol/L (9-33) L 02/10/20 12:40 Creatine Kinase 37 U/L (55-170) L 02/10/20 08:36 CK-MB (CK-2) 2.23 ng/mL (<4.55) 02/10/20 12:40 Troponin I 0.049 ng/mL 02/10/20 12:40 C-Reactive Protein 224.8 mg/L (<10.0) H 02/10/20 05:22 NT-Pro-B Natriuret Pep 3830 pg/mL (<125) H 02/10/20 08:36 Total Protein 7.4 g/dL (6.3-8.2) 02/11/20 05:25 Albumin 3.7 g/dL (3.5-5.0) 02/11/20 05:25 Amylase 57 U/L (30-110) 02/11/20 05:25 Lipase 895.4 U/L (23-300) H 02/11/20 05:25 TSH 1.43 uIU/mL (0.47-4.68) 02/10/20 08:36 Urine Color YELLOW 02/10/20 08:55 Urine Appearance CLEAR 02/10/20 08:55 Urine pH 6.0 (5.0-9.0) 02/10/20 08:55 Ur Specific [place] 1.020 02/10/20 08:55 Urine Protein 100 mg/dL (NEGATIVE) H 02/10/20 08:55 Urine Glucose (UA) NEGATIVE mg/dL (NEGATIVE) 02/10/20 08:55 Urine Ketones 20 mg/dL (NEGATIVE) H 02/10/20 08:55 Urine Blood NEGATIVE (NEGATIVE) 02/10/20 08:55 Urine Nitrite NEGATIVE (NEGATIVE) 02/10/20 08:55 Urine Bilirubin NEGATIVE (NEGATIVE) 02/10/20 08:55 Urine Urobilinogen 2.0 mg/dL (<2.0) H 02/10/20 08:55 Ur Leukocyte Esterase TRACE (NEGATIVE) H 02/10/20 08:55 Urine WBC (Auto) 7 /HPF 02/10/20 08:55 Urine RBC (Auto) 4 /HPF 02/10/20 08:55 U Hyaline Cast (Auto) 1 /LPF 02/10/20 08:55 Squamous Epi Cells Auto 3 /HPF 02/10/20 08:55 Urine Mucus (Auto) RARE /LPF 02/10/20 08:55 Urine Ascorbic Acid 40 (NEGATIVE) H 02/10/20 08:55 Digoxin 0.74 ng/mL (0.8-2.0) L 02/10/20 08:36 Urine Opiates Screen UNCONFIRMED POSITIVE 02/10/20 08:55 Urine Methadone Screen NEGATIVE 02/10/20 08:55 Ur Barbiturates Screen NEGATIVE 02/10/20 08:55 Ur Phencyclidine Scrn NEGATIVE 02/10/20 08:55 Ur Amphetamines Screen NEGATIVE 02/10/20 08:55 U Benzodiazepines Scrn NEGATIVE 02/10/20 08:55 Urine Cocaine Screen NEGATIVE 02/10/20 08:55 U Marijuana (THC) Screen UNCONFIRMED POSITIVE 02/10/20 08:55 Serum Alcohol < 10 mg/dL (NONE DETECTED) 02/10/20 08:36 02/10/20 02/10/20 02/10/20 08:36 08:36 12:40 CK-MB (CK-2) 2.23 Troponin I 0.045 0.049 NT-Pro-B Natriuret Pep 3830 H Impressions: Abdomen Ultrasound 02/10/20 09:16 IMPRESSION: Limited study. Fatty enlarged liver. Chest X-Ray 02/10/20 10:11 IMPRESSION: NO SIGNIFICANT RADIOGRAPHIC FINDING IN THE CHEST. Plan Plan of Treatment: Patient is advised to avoid alcohol intake and cut down the alcohol intake to prevent further flareup of acute pancreatitis. Time Spent: Greater than 30 Minutes Stroke Is this a Stroke Patient?: No Acute Heart Failure - Is this a Heart Failure Patient?: No
== END 2020-02-12 10:14 | disposition home or self-care (01) | DRG 440 ==
LOC: ER 06:52 → EH 10:42 → 3S 12:49
PROVIDERS: ADMIT Hospitalist; ATTEND Internal Medicine
DX: K85.20 Alcohol induced acute pancreatitis without necrosis or infection (principal); F10.10 Alcohol abuse, uncomplicated; I48.0 Paroxysmal atrial fibrillation; I10 Essential (primary) hypertension; M10.9 Gout, unspecified; F41.9 Anxiety disorder, unspecified; E66.01 Morbid (severe) obesity due to excess calories; F31.9 Bipolar disorder, unspecified; E83.42 Hypomagnesemia; R11.2 Nausea with vomiting, unspecified; Z96.652 Presence of left artificial knee joint; Z79.84 Long term (current) use of oral hypoglycemic drugs; Z79.899 Other long term (current) drug therapy; Z79.890 Hormone replacement therapy; Z85.828 Personal history of other malignant neoplasm of skin; Z79.01 Long term (current) use of anticoagulants
CPT/HCPCS: 36415; 71045; 76705; 80053; 80162; 80307; 81001; 82140; 82150; 82550; 82553; 82962; 83690; 83735; 83880; 84443; 84484; 85025; 85610; 85730; 86140; 93005; 93010; 96361; 96365; 96368; 96375; 96376; 99291; C9113; J0360; J1160; J2270; J2405; J3010; J3475; J3490; J7030